=== PATIENT | male | born 1960 | race Caucasian/White ===

== ENCOUNTER 2017-12-11 16:53 | Emergency (ER) | payer OTHER, MEDICAID ==
[~2017-12-11] VITALS: Ht 177.8 cm; Wt 136.1 kg
[2017-12-11 17:30] VITALS: BP 153/101
[2017-12-11] MEDS ORDERED: HYDROcodone-ACET 5/325MG TAB PO ONE (17:45)
[2017-12-11] MEDS ORDERED: KETOROLAC TROMETH 60MG/2ML VIAL IM ONE (17:45)
== END 2017-12-11 19:49 | disposition home or self-care (01) ==
LOC: ER 16:53
DX: S80.01XA Contusion of right knee, initial encounter (principal); I10 Essential (primary) hypertension; M25.511 Pain in right shoulder; E66.01 Morbid (severe) obesity due to excess calories; Z68.41 Body mass index [BMI] 40.0-44.9, adult; W01.0XXA Fall on same level from slipping, tripping and stumbling without subsequent striking against object, initial encounter; Y93.89 Activity, other specified; Y99.8 Other external cause status; Y92.89 Other specified places as the place of occurrence of the external cause
CPT/HCPCS: 73030; 73562; 96372; 99284; J1885